=== PATIENT | male | born 1995 | race African-American/Black ===

== ENCOUNTER 2020-11-17 14:51 | Emergency (ER) | payer OTHER ==
[~2020-11-17] VITALS: Ht 175.2 cm; Wt 81.8 kg
[2020-11-17] MEDS ORDERED: KETOROLAC 60 MG/2 ML VIAL IM ONE (15:00)
--- NOTE | 2020-11-17 15:04 | ED Upper Extremity ---
General Chief Complaint: Upper Extremity Stated Complaint: R SHOULDER DISLOCATION Source: patient Exam Limitations: no limitations History of Present Illness Date Seen by Provider: Nov 17, 2020 Time Seen by Provider: 14:39 Initial Comments Patient arrives ER by EMS with chief complaint of having a accident at his apartment and now he thinks his right shoulder is dislocated or broken. He has never dislocated or injured this shoulder before but he has had left shoulder dislocations when he played football in high school. He declines to answer what happened. He says nothing else was hurt but he does have a small lip laceration. He has no numbness or loss of sensation in his right arm. Full range of motion of his forearm. 8.5 out of 10 pain at rest. Allergies and Home Medications Allergies Coded Allergies: No Known Drug Allergies (Unverified , 11/17/20) Home Medications Cyclobenzaprine HCl 10 Mg Tablet, 10 MG PO Q8H PRN for SPASMS Prescribed by: DOLORES FRANCIS on 11/17/20 1630 Patient Home Medication List Home Medication List Reviewed: Yes Review of Systems Constitutional: No chills, No diaphoresis EENTM: No ear discharge, No ear pain Respiratory: No cough, No short of breath Cardiovascular: No Hx of Intervention, No palpitations Gastrointestinal: No abdominal pain, No nausea Genitourinary: No discharge, No dysuria Musculoskeletal: see HPI; No back pain; joint pain Past Iqrjpdz-Siezxo-Ieipjx Hx Patient Social History Alcohol Use: Denies Use Recreational Drug Use: No Smoking Status: Never a Smoker Physical Exam Vital Signs Vital Signs - First Documented 11/17/20 11/17/20 14:52 16:09 Temp 36.7 Pulse 97 Resp 18 B/P (MAP) 129/92 (104) Pulse Ox 97 O2 Delivery Room Air O2 Flow Rate 0 0 Capillary Refill : Height, Weight, BMI Height: '" Weight: lbs. oz. kg; BMI Method: General Appearance: WD/WN, mild distress HEENT: PERRL/EOMI, pharynx normal Neck: full range of motion, normal inspection Cardiovascular: normal peripheral pulses, regular rate, rhythm Respiratory: lungs clear, normal breath sounds, no respiratory distress, no accessory muscle use Shoulder: limited ROM (Right shoulder anterior protruding proximal humeral head), soft tissue tenderness Procedures/Interventions Procedure: sedation for closed reduction of the right shoulder Patient Education: Explained Benefits, Explained Risks, Pt. Ack. Understanding Agreement on procedure with pt: Yes Breath Sounds per Auscultation: Clear Heart Sounds per Auscultation: Regular Airway Exam: Mouth opens >2 fingers, Neck Full Range of Motion, Visulation of Uvula Sedation Adminstration Time: 16:12 Total Time spent in CS 10 Good sedation patient was relaxing easily reduced his shoulder using traction countertraction with maneuver. Assisted by Kristel Riojas. Respiratory therapy and nursing staff were in the room. Etomidate 20 mg was given IV followed by 75 mcg of fentanyl. 60 mg Norflex. Re-examination Time: 16:28 Re-examination Patient alert, oriented, joking with good clear airway and pain under control in a right arm sling. Progress/Results/Core Measures Results/Orders My Orders Orders - DOLORES FRANCIS Shoulder, Right, 3 Views (11/17/20 14:52) Ketorolac Injection (Toradol Injection) (11/17/20 15:00) Ketorolac Injection (Toradol Injection) (11/17/20 15:15) Etomidate Injection (Amidate Injection) (11/17/20 16:00) Fentanyl Injection (Sublimaze Injection (11/17/20 16:00) Orphenadrine Inj (Ed Only) (Norflex Inje (11/17/20 16:00) Ed Iv/Invasive Line Start (11/17/20 15:55) Ns Iv 500 Ml (Sodium Chloride 0.9%) (11/17/20 16:00) Shoulder, Right, 2 Views (11/17/20 16:14) Medications Given in ED Current Medications Medications Dose Ordered Sig/Elyse Route Start Time Stop Time Status Last Admin Dose Admin Etomidate 20 mg ONCE ONCE IV 11/17/20 16:00 11/17/20 16:01 DC 11/17/20 16:08 20 MG Fentanyl Citrate 75 mcg ONCE ONCE IVP 11/17/20 16:00 11/17/20 16:01 DC 11/17/20 16:06 75 MCG Ketorolac Tromethamine 30 mg ONCE ONCE IVP 11/17/20 15:15 11/17/20 15:16 DC 11/17/20 15:10 30 MG Orphenadrine Citrate 60 mg ONCE ONCE IV 11/17/20 16:00 11/17/20 16:01 DC 11/17/20 16:07 60 MG Sodium Chloride 500 ml @ 0 mls/hr Q0M ONCE IV 11/17/20 16:00 11/17/20 16:01 DC 11/17/20 16:00 500 MLS/HR Vital Signs/I&O 11/17/20 11/17/20 11/17/20 11/17/20 14:52 16:09 16:12 16:15 Temp 36.7 Pulse 97 58 64 Resp 18 22 18 B/P (MAP) 129/92 (104) 176/71 100/65 Pulse Ox 97 98 97 O2 Delivery Room Air Room Air Nasal Cannula Nasal Cannula O2 Flow Rate 0 0 2.00 0 11/17/20 11/17/20 16:20 16:51 Pulse 59 60 Resp 18 18 B/P (MAP) 162/82 111/77 Pulse Ox 98 96 O2 Delivery Nasal Cannula Room Air O2 Flow Rate 2.00 Progress Progress Note #1: Time: 15:05 Progress Note 3 view plain film of the right shoulder. Toradol 30 mg IV. Progress Note #2: Time: 15:54 Progress Note Made 1 attempt at reduction by manipulating the scapula but the patient was in too much muscle spasm and uncomfortable. We'll give Norflex and etomidate as well as some fentanyl. Discussed risks, benefits and alternatives and the patient gave written consent. Diagnostic Imaging Diagonstic Imaging: Xray Plain Films/CT/US/NM/MRI: other (3 view right shoulder) Comments NAME: LOURDES BOSE [facility] REC#: [id number] PT STATUS: REG ER : 1995 PHYSICIAN: DOLORES FRANCIS MD ADMIT DATE: 11/17/20/ER Draft Date of Exam:11/17/20 SHOULDER, RIGHT, 3 VIEWS Indication: Right shoulder injury with decreased range of motion. Comparison: None. Discussion: Three views of the right shoulder were obtained. Anterior inferior dislocation. No obvious fracture. Soft tissues are unremarkable otherwise. Impression: Anterior right shoulder dislocation. Dictated on workstation # [id number] Dict: 11/17/20 1545 Trans: 11/17/20 1555 [facility] [id number] Interpreted by: FRAN MARIN MD Electronically signed by: Reviewed: Reviewed by Me Diagonstic Imaging: Xray Plain Films/CT/US/NM/MRI: other (shoulder) Comments NAME: LOURDES BOSE [facility] REC#: [id number] PT STATUS: REG ER : 1995 PHYSICIAN: DOLORES FRANCIS MD ADMIT DATE: 11/17/20/ER Signed Date of Exam:11/17/20 SHOULDER, RIGHT, 2 VIEWS Indication: Follow-up right shoulder dislocation, pain. Comparison: Earlier same day. Discussion: Two views of the right shoulder were obtained. Interval reduction of the previous dislocation. Small Hill-Sachs deformity is noted. No fracture otherwise. Soft tissues are unremarkable. Impression: 1. Interval reduction of previous right shoulder dislocation. Small Hill-Sachs deformity noted. Dictated by: Dictated on workstation # [id number] Dict: 11/17/20 1633 Trans: 11/17/20 1646 [facility] [id number] Interpreted by: FRAN MARIN MD Electronically signed by: FRAN MARIN MD 11/17/20 1646 Reviewed: Reviewed by Me Departure Impression Primary Impression: Anterior dislocation of right shoulder Qualified Codes: S43.014A - Anterior dislocation of right humerus, initial encounter Additional Impression: History of conscious sedation Disposition: 01 HOME, SELF-CARE Condition: Improved Departure-Patient Inst. Decision time for Depature: 16:31 Referrals: NO,LOCAL PHYSICIAN (PCP) Primary Care Physician Patient Instructions: Moderate Sedation in Adults (DC), Shoulder Dislocation Add. Discharge Instructions: Follow-up in 1 to 2 weeks with orthopedic surgery. [facility] ([place], [place]) at Dr Skinner ([place], [place]) at Dr Peng ([place], [place]) at Keep the shoulder in a sling for at least 2 weeks or until released by the surgeon. No lifting pushing or pulling with your right shoulder. It is okay to write or use your fingers. Ice pack applied to the shoulder 20 minutes on every 2 hours for the first 2 days. Heating pads can be helpful. Muscle rubs such as icy hot or Biofreeze can be helpful. Tylenol 1000 mg every 8 hours as necessary for pain. Ibuprofen 800 mg every 8 hours as necessary for pain. Cyclobenzaprine 1 tablet every 8 hours as necessary for muscle spasms. Will cause drowsiness. Go home and get some sleep tonight. All discharge instructions reviewed with patient and/or family. Voiced understanding. Scripts Cyclobenzaprine HCl (Cyclobenzaprine HCl) 10 Mg Tablet 10 MG PO Q8H PRN for SPASMS, #15 TAB 0 Refills Prov: DOLORES FRANCIS 11/17/20 Work/School Note: Work Release Form Date Seen in the Emergency Department: Nov 17, 2020 Return to Work: Nov 18, 2020 Restrictions: Need Release from Doctor Other Restrictions Listed Below: No lifting pushing pulling more than 2 poun ds with right arm until 12/02/19. DOLORES FRANCIS Nov 17, 2020 15:04
[2020-11-17] MEDS ORDERED: KETOROLAC 30 MG/ML VIAL IVP ONE (15:15)
--- NOTE | 2020-11-17 15:15 | NUR ---
ASKED PATIENT IF THIS ACCIDENT WAS ANYTHING HE WANTED TO MAKE POLICE REPORT FOR.
--- NOTE | 2020-11-17 15:25 | NUR ---
TO Tomasz KATHLEEN
--- NOTE | 2020-11-17 15:39 | NUR ---
RETURN FROM [facility]
--- NOTE | 2020-11-17 15:56 | Diagnostic Imaging Report ---
Indication: Right shoulder injury with decreased range of motion. Comparison: None. Discussion: Three views of the right shoulder were obtained. Anterior inferior dislocation. No obvious fracture. Soft tissues are unremarkable otherwise. Impression: Anterior right shoulder dislocation. Dictated by: Dictated on workstation # [id number]
[2020-11-17] MEDS ORDERED: ETOMIDATE IV SOLN 20 MG/10 ML VIAL IV ONE (16:00)
[2020-11-17] MEDS ORDERED: fentaNYL INJECTION 100 MCG/2 ML AMP IVP ONE (16:00)
[2020-11-17] MEDS ORDERED: NS IV 500 ML 500 ML IV ONE (16:00)
[2020-11-17] MEDS ORDERED: ORPHENADRINE 60 MG/2 ML (NORFLEX) AMP (ED ONLY) IV ONE (16:00)
--- NOTE | 2020-11-17 16:12 | NUR ---
THIS RN IS PRESENT AND ASSISTING DURING THE CONCIOUS SEDATION OF RIGHT SHOULDER REDUCTION WITH ORTEGA MCFARLANE.
--- NOTE | 2020-11-17 16:22 | NUR ---
CONSCIOUS SEDATION: TIME OUT: 1612 START TIME: 1612 PROCEDURE COMPLETED: 1614 PT ALERT/ORIENTED: 1622
[2020-11-17] MEDS ORDERED: CYCL10TA9 PO (16:30)
--- NOTE | 2020-11-17 16:48 | Diagnostic Imaging Report ---
Indication: Follow-up right shoulder dislocation, pain. Comparison: Earlier same day. Discussion: Two views of the right shoulder were obtained. Interval reduction of the previous dislocation. Small Hill-Sachs deformity is noted. No fracture otherwise. Soft tissues are unremarkable. Impression: 1. Interval reduction of previous right shoulder dislocation. Small Hill-Sachs deformity noted. Dictated by: Dictated on workstation # [id number]
[2020-11-17 17:08] VITALS: BP 123/66
== END 2020-11-17 17:08 | disposition home or self-care (01) ==
LOC: ER 14:53
DX: S43.014A Anterior dislocation of right humerus, initial encounter (principal); X58.XXXA Exposure to other specified factors, initial encounter
CPT/HCPCS: 23655; 73030 ×2; 93041; 99285; L3650